=== PATIENT | female | born 1990 | race Two or more races ===

== ENCOUNTER 2024-03-21 23:49 | Emergency (ER) | payer MEDICAID ==
[~2024-03-21] VITALS: Ht 152.4 cm; Wt 96.9 kg
[~2024-03-21 23:49] MED LIST: ALBUAER3 IN; PREN1TAB71 OR
[2024-03-22] MEDS: cloNIDine HCL 0.1 MG TAB PO ONE (00:22)
[2024-03-22 00:59] LABS: Basophils # (auto) 0.1 10 ^3/uL (0-0.2); Basophils % (auto) 0.6 % (0.0-2.0); Eosinophils # (auto) 0.1 10 ^3/uL (0-0.8); Eosinophils % (auto) 1.6 % (0.0-7.0); Hematocrit 37.6 % (36.0-46.0); Hemoglobin 12.9 g/dL (12.2-16.2); Lymphocytes # (auto) 3.3 10 ^3/uL (0.4-5.4); Lymphocytes % (auto) 37.5 % (10.0-50.0); Mean Corpuscular Hemoglobin 29.4 pg (28.0-32.0); Mean Corpuscular Hgb Conc. 34.4 g/dL (32.0-36.0); Mean Corpuscular Volume 85.5 fL (80.0-100.0); Monocytes # (auto) 0.5 10 ^3/uL (0-1.3); Neutrophils # (auto) 4.9 10 ^3/uL (1.6-8.6); Neutrophils % (auto) 54.3 % (37.0-80.0); Nucleated Red Blood Cells % 0.2 %; Red Cell Distribution Width 14.9 % (11.8-14.3); White Blood Cell 8.9 10^3/uL (4.4-10.8)
[2024-03-22 01:08] LABS: Urine Bacteria FEW /hpf (None Seen); Urine Blood Negative /uL (Negative); Urine Clarity Turbid (Clear); Urine Color Colorless (Yellow); Urine Hyaline Cast FEW /lpf (0 - 2); Urine Mucus FEW (None Seen); Urine Protein, UAD Negative (Negative); Urine Specific Gravity 1.013 (1.001-1.035); Urine Urobilinogen Normal (Negative); Urine WBC <1 /hpf (0 - 5)
[2024-03-22 01:17] LABS: Alanine Aminotransferase 21 U/L (7-40); Albumin 4.3 g/dL (3.2-4.8); Alkaline Phosphatase 47 U/L (46-116); Anion Gap 9 (5-15); Aspartate Aminotransferase 15 U/L (13-40); BUN/Creatinine Ratio 9.8 (10.0-20.0); Bilirubin, Total 0.3 mg/dL (0.2-1.0); Blood Urea Nitrogen 10 mg/dL (9-23); Calcium 10.1 mg/dL (8.7-10.4); Carbon Dioxide 25 mmol/L (20-30); Chloride 108 mmol/L (98-107); Glucose 112 mg/dL (74-106); Lipase 34 U/L (12-53); Potassium 3.8 mmol/L (3.5-5.1); Sodium 142 mmol/L (136-145); Total Protein 7.3 g/dL (5.7-8.2)
[2024-03-22] MEDS ORDERED: CLON0.2T PO (01:37)
[2024-03-22] MEDS ORDERED: ZOFR4T PO (01:37)
[2024-03-22] MEDS ORDERED: DICY10CA PO (01:37)
[2024-03-22] MEDS: DICYCLOMINE HCL (10MG/ML) 2 ML AMPULE IM ONE (03:02)
[2024-03-22] MEDS: ONDANSETRON ODT 4 MG TAB PO ONE (03:02)
[2024-03-22 03:05] VITALS: BP 135/94; PULSE 69; RESP 16; TEMP 98.1; O2SAT 98
== END 2024-03-22 03:12 | disposition home or self-care (01) ==
LOC: ER 23:49
DX: A08.4 Viral intestinal infection, unspecified (principal); J45.909 Unspecified asthma, uncomplicated; R03.0 Elevated blood-pressure reading, without diagnosis of hypertension
CPT/HCPCS: 36415; 80053; 81001; 83690; 85025; 93005; 96372; 99284; J0500; Q0162

== ENCOUNTER 2024-04-10 16:46 | Emergency (ER) | payer MEDICAID ==
[~2024-04-10] VITALS: Ht 152.4 cm; Wt 93.6 kg
[~2024-04-10 16:46] MED LIST changes: +CLON0.2T PO; +DICY10CA PO; +ZOFR4T PO
[2024-04-10 18:52] LABS: Urine Bacteria MANY /hpf (None Seen); Urine Blood TRACE /uL (Negative); Urine Clarity Turbid (Clear); Urine Color Light-Yellow (Yellow); Urine Mucus FEW (None Seen); Urine Protein, UAD Negative (Negative); Urine Specific Gravity 1.015 (1.001-1.035); Urine Urobilinogen Normal (Negative); Urine WBC 10 /hpf (0 - 5); Urine pH 5.5 (5.0-9.0)
[2024-04-10 20:26] LABS: Basophils # (auto) 0 10 ^3/uL (0-0.2); Basophils % (auto) 0.3 % (0.0-2.0); Eosinophils # (auto) 0 10 ^3/uL (0-0.8); Eosinophils % (auto) 0.2 % (0.0-7.0); Hematocrit 41.5 % (36.0-46.0); Lymphocytes # (auto) 0.9 10 ^3/uL (0.4-5.4); Lymphocytes % (auto) 9.8 % (10.0-50.0); Mean Corpuscular Hemoglobin 28.5 pg (28.0-32.0); Mean Corpuscular Hgb Conc. 33.8 g/dL (32.0-36.0); Mean Corpuscular Volume 84.4 fL (80.0-100.0); Monocytes # (auto) 0.5 10 ^3/uL (0-1.3); Monocytes % (auto) 5.3 % (0.0-12.0); Neutrophils # (auto) 7.4 10 ^3/uL (1.6-8.6); Neutrophils % (auto) 84.4 % (37.0-80.0); Nucleated Red Blood Cells % 0.1 %; Red Blood Cells 4.93 10^6/uL (4.0-5.20); Red Cell Distribution Width 15.1 % (11.8-14.3); White Blood Cell 8.7 10^3/uL (4.4-10.8)
[2024-04-10] MEDS: HYDROcodone-ACET 10/325MG TAB PO ONE (20:28)
[2024-04-10 20:51] LABS: Chloride 105 mmol/L (98-107); Potassium 3.6 mmol/L (3.5-5.1); Sodium 139 mmol/L (136-145)
[2024-04-10 20:52] LABS: Anion Gap 9 (5-15); Carbon Dioxide 25 mmol/L (20-30)
[2024-04-10 20:57] LABS: BUN/Creatinine Ratio 14.2 (10.0-20.0); Blood Alcohol < 3.0 mg/dL (<10); Blood Urea Nitrogen 18 mg/dL (9-23); Glucose 121 mg/dL (74-106)
[2024-04-10] MEDS ORDERED: NITR-87 PO (21:33)
[2024-04-10] MEDS ORDERED: ACET500T58 PO (21:33)
[2024-04-10 22:00] VITALS: BP 106/66; PULSE 94; RESP 20; TEMP 97.5; O2SAT 97
[2024-04-10] MEDS: NITROFURANTOIN 100 mg CAP PO ONE (22:12)
== END 2024-04-10 22:15 | disposition home or self-care (01) ==
LOC: ER 16:50
DX: N39.0 Urinary tract infection, site not specified (principal); R51.9 Headache, unspecified; I10 Essential (primary) hypertension; J45.909 Unspecified asthma, uncomplicated
CPT/HCPCS: 36415; 70450; 80048; 80320; 81001; 81025; 82962; 85025